=== PATIENT | male | born 1940 | race Caucasian/White ===

== ENCOUNTER 2016-05-22 10:14 | Emergency (ER) | payer MEDICARE, BC ==
--- NOTE | 2016-05-22 11:38 | UC ---
Dizzy HPI HPI Summary: PT STARTED FEELING "WOBBLY" LAST NIGHT AROUND 10 PM. HAS BEEN FEELING DIZZY AND UNSTEADY ON HIS FEET SINCE THEN. IS A DIABETIC AND TOOK HIS INSULIN LAST NIGHT AND ORAL MEDS THIS AM BUT WAS NPO FOR AN US TODAY. WHILE HERE AT [facility] FOR HIS US HE CONTINUED TO FEEL UNWELL SO WAS SENT HERE FOR EVAL. POC GLUCOSE DONE IN US SUITE WAS REPORTEDLY 190. PT DID FALL THIS MORNING BUT NO HEAD INJURY OR LOC. FEELS FINE WHEN LAYING SUPINE. ALSO C/O LEFT GROIN PAIN. PT IS CONCERNED HE WILL FALL AGAIN IF HE TRIES TO WALK. - History Of Current Complaint Chief Complaint: UCDizziness Stated Complaint: DIZZY Time Seen by Provider: 05/22/16 10:31 Hx Obtained From: Patient, Family/Executive Sales Manager - Onset/Duration: Sudden Onset, Lasting Hours, Still Present Timing: Intermittent Episode Lasting Severity Initially: Moderate Severity Currently: Moderate Pain Intensity: 6 Pain Scale Used: 0-10 Numeric Character: Dizzy Aggravating Factor(s): Position Change, Supine To Erect Alleviating Factor(s): Rest Associated Signs And Symptoms: Positive: Unsteady Gait. Negative: Nausea, Vomiting, Diaphoresis, Tinnitus, Chest Pain, SOB, Palpitations, Visual Changes - Allergies/Home Medications Allergies/Adverse Reactions: Allergies Allergy/AdvReac Type Severity Reaction Status Date / Time Atorvastatin [From Lipitor] Allergy Muscle Ache Verified 08/08/15 15:20 Hydrocodone [From Vicodin] Allergy Nausea And Verified 08/08/15 15:20 Vomiting Home Medications: Home Medications Cilostazol TAB* [Pletal TAB*] 100 mg PO BID 05/22/16 [History Confirmed 05/22/16 ] Insulin Detemir (NF) [Levemir (NF)] 60 DAILY 05/22/16 [History] PMH/Surg Hx/FS Hx/Imm Hx Endocrine History Of: Reports: Diabetes Denies: Thyroid Disease Cardiovascular History Of: Reports: Cardiac Disorders - stent-1, Hypertension - on medication Denies: Pacemaker/ICD, Congestive Heart Failure Respiratory History Of: Reports: Asthma Denies: COPD GI/ History Of: Denies: Ulcer, Renal Disease - possible kidney stone to the left kidney with no prior HX Psychological History Of: Reports: Anxiety - Surgical History Surgical History: Yes Surgery Procedure, Year, and Place: HEART CATH WITH 1 STENT PLACED AT [facility] IN 2005,left knee; hernias; appy; abdominal aneurysm repair - Family History Known Family History: Positive: Cardiac Disease, Hypertension, Diabetes - Social History Alcohol Use: 15 years ago; no recent use Substance Use Type: None Smoking Status (MU): Former Smoker Type: Cigarettes Amount Used/How Often: 3-4 cigarettes/day Length of Time of Smoking/Using Tobacco: 45 years Have You Smoked in the Last Year: Yes Household Exposure Type: Cigarettes - Immunization History Most Recent Influenza Vaccination: [id number] flu season Most Recent Tetanus Shot: unknown Most Recent Pneumonia Vaccination: date unknown Review of Systems Constitutional: Negative Eyes: Negative ENT: Negative Respiratory: Negative Cardiovascular: Negative Gastrointestinal: Negative Neurological: Weakness, Other - DIZZY All Other Systems Reviewed And Are Negative: Yes Physical Exam Triage Information Reviewed: Yes Appearance: Well-Appearing, No Pain Distress, Well-Nourished Vital Signs: Initial Vital Signs Temp 97.9 F 05/22/16 10:28 Pulse 79 05/22/16 10:28 Resp 18 05/22/16 10:28 BP 145/76 05/22/16 10:28 Pulse Ox 95 05/22/16 10:28 Vital Signs Reviewed: Yes Eyes: Positive: Conjunctiva Clear ENT: Positive: Hearing grossly normal Neck: Positive: Supple, Nontender, No Lymphadenopathy Respiratory Exam: Normal Cardiovascular: Positive: RRR - WITH OCCASIONAL ECTOPIC BEAT, Murmur:Sys:Grade _ ?_/ - 2/6 Abdomen Description: Positive: Soft Musculoskeletal: Positive: No Edema, Other: - 2+ DP PULSES. FEET PALE BUT WARM. NO SWELLING. VERY SENSITIVE TO TOUCH. LEFT GROIN TENDERNESS. NO MASSES OR LAD PALPATED. NO CALF TENDERNESS. Neurological: Positive: Alert Psychological: Positive: Normal Response To Family, Age Appropriate Behavior Skin: Negative: rashes Diagnostics - EKG Cardiac Rate: NL - 80 BPM Cardiac Rhythm: Sinus: Normal Ectopy: None - SINUS PAUSE ST Segment: Normal Dizzy Course/Dx - Differential Dx/Diagnosis Differential Diagnosis/HQI/PQRI: Benign Paroxysmal Positional Vertigo, Dysrhythmia, Hypovolemia, Metabolic Abnormality Provider Diagnoses: DIZZINESS, WEAKNESS - Physician Notifications Discussed Patient Care With: ABIOLA JACKSON Time Discussed With Above Provider: 11:41 Instructed by Provider To: Transfer - TO [facility] [place] ER BY PRIVATE CAR Discharge - Discharge Plan Condition: Stable Disposition: TRANS HIGHER LVL OF CARE FAC Referrals: Burton Irving MD [Primary Care Provider] -
[2016-05-22 11:59] VITALS: BP 188/85
== END 2016-05-22 11:35 | disposition left against medical advice (07) ==
LOC: UCEAST 10:14
DX: R42 Dizziness and giddiness (principal); R53.1 Weakness; R10.32 Left lower quadrant pain; Z87.891 Personal history of nicotine dependence; E11.9 Type 2 diabetes mellitus without complications; I25.10 Atherosclerotic heart disease of native coronary artery without angina pectoris; I10 Essential (primary) hypertension; E78.5 Hyperlipidemia, unspecified; Z88.5 Allergy status to narcotic agent; Z79.4 Long term (current) use of insulin
CPT/HCPCS: 93005; 99212; G0463

== ENCOUNTER 2016-05-22 12:03 | Emergency (ER) | payer MEDICARE, BC ==
--- NOTE | 2016-05-22 13:21 | RAD ---
HISTORY: Dizziness COMPARISONS: July 02, 2015, MRI dated July 03, 2015 TECHNIQUE: Multiple contiguous axial CT scans were obtained of the head without intravenous contrast. FINDINGS: HEMORRHAGE/INFARCT: There is no hemorrhage or acute infarct. MASSES/SHIFT: There is no mass or shift. EXTRA-AXIAL SPACES: There are no extra-axial fluid collections. SULCI AND VENTRICLES: The sulci and ventricles are normal in size and position for the patient's stated age. CEREBRUM: There is hypoattenuation of the periventricular and subcortical white matter. BRAINSTEM: There are no focal parenchymal abnormalities. CEREBELLUM: There are no focal parenchymal abnormalities. VESSELS: There is calcification of the cavernous segments of the internal carotid arteries bilaterally. PARANASAL SINUSES: The paranasal sinuses are clear. ORBITS: The orbits are unremarkable. BONES AND SOFT TISSUE: No bone or soft tissue abnormalities are noted. OTHER: None IMPRESSION: CHRONIC SMALL VESSEL ISCHEMIC CHANGES. NO ACUTE INTRACRANIAL PATHOLOGY.
[2016-05-22 13:32] LABS: Hematocrit 37 % (42-52); Hemoglobin 12.3 g/dl (14.0-18.0); Mean Corpuscular HGB Conc 33 g/dl (31-36); Mean Corpuscular Hemoglobin 26 pg (27-31); Mean Corpuscular Volume 80 fL (80-94); Mean Platelet Volume 7 um3 (7.4-10.4); Red Blood Count 4.69 10^6/ul (4.0-5.4); Red Cell Distribution Width 16 % (10.5-15); White Blood Count 11.7 10^3/ul (3.5-10.8)
[2016-05-22 13:46] LABS: Albumin 3.6 g/dL (3.2-5.2); BUN/Creatinine Ratio 15.9 (8-20); C Reactive Protein 17.44 mg/L (< 5.00); Calcium 8.7 mg/dL (8.6-10.3); EGFR African American 64.6 (>60); EGFR Non-African American 50.2 (>60); Globulin 3.2 g/dL (2-4); Magnesium 1.8 mg/dL (1.9-2.7); Total Bilirubin 0.3 mg/dL (0.2-1.0); Total Protein 6.8 g/dL (6.4-8.9)
[2016-05-22 13:47] LABS: Troponin I 0.02 ng/mL (<0.04)
--- NOTE | 2016-05-22 14:02 | RAD ---
Indication: Dizziness. Coronary artery disease with previous stenting. Asthma. Comparison: July 28, 2015 Technique: Upright AP 1325 hours Report: Clear lungs and pleural spaces. Negative for pneumothorax. Upper normal heart size. Unremarkable central pulmonary vasculature and mediastinal contours. Anterior cervical fusion hardware noted. IMPRESSION: No evidence for acute intrathoracic disease.
[2016-05-22 14:13] VITALS: BP 147/65
[2016-05-22 14:21] LABS: TSH (Thyroid Stimulating Horm) 0.68 mcIU/mL (0.34-5.60)
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
== END 2016-05-22 15:12 | disposition home or self-care (01) ==
LOC: ED 12:03
DX: R53.1 Weakness (principal); Z87.891 Personal history of nicotine dependence; E11.9 Type 2 diabetes mellitus without complications; I25.10 Atherosclerotic heart disease of native coronary artery without angina pectoris; I10 Essential (primary) hypertension; E78.5 Hyperlipidemia, unspecified; Z88.5 Allergy status to narcotic agent; Z79.4 Long term (current) use of insulin; I71.4 Abdominal aortic aneurysm, without rupture; I70.1 Atherosclerosis of renal artery; I73.9 Peripheral vascular disease, unspecified
CPT/HCPCS: 36415; 70450; 71010; 80053; 83605; 83735; 83880; 84443; 84484; 85025; 86140; 93005; 93978; 99212; 99282; G0463

== ENCOUNTER 2017-01-25 11:21 | Inpatient (IN) | payer MEDICARE, OTHER ==
--- NOTE | 2017-01-25 12:58 | RAD ---
INDICATION: Weakness. COMPARISON: Comparison is made with a prior study from May 22, 2016. TECHNIQUE: A portable view of the chest was obtained. FINDINGS: Cardiac and mediastinal contours appear to be within normal limits. The lungs are clear. No pleural effusion is seen. Postsurgical changes are noted in the cervical spine. IMPRESSION: NO EVIDENCE FOR ACUTE DISEASE.
[2017-01-25 13:40] LABS: Hematocrit 42 % (42-52); Mean Corpuscular HGB Conc 34 g/dl (31-36); Mean Corpuscular Hemoglobin 28 pg (27-31); Mean Corpuscular Volume 84 fL (80-94); Mean Platelet Volume 7 um3 (7.4-10.4); Red Blood Count 4.97 10^6/ul (4.0-5.4); Red Cell Distribution Width 15 % (10.5-15); White Blood Count 14.1 10^3/ul (3.5-10.8)
[2017-01-25 13:51] LABS: Urine Bilirubin Negative (Negative); Urine Glucose Negative (Negative); Urine Nitrite Negative (Negative)
[2017-01-25 14:00] LABS: Albumin 4.3 g/dL (3.2-5.2); BUN/Creatinine Ratio 15.4 (8-20); Calcium 8.8 mg/dL (8.6-10.3); EGFR African American 65.5 (>60); EGFR Non-African American 50.9 (>60); Globulin 2.9 g/dL (2-4); Total Bilirubin 0.4 mg/dL (0.2-1.0); Total Protein 7.2 g/dL (6.4-8.9)
[2017-01-25 14:01] LABS: Troponin I 0.01 ng/mL (<0.04)
[2017-01-25 14:14] LABS: TSH (Thyroid Stimulating Horm) 0.6 mcIU/mL (0.34-5.60)
[2017-01-25] MEDS ORDERED: Morphine INJ* 2 MG/ML 1 ML CARPUJECT IV ONE (15:04)
[2017-01-25] MEDS ORDERED: Ondansetron INJ* 2 MG/ML VIAL IV ONE (15:04)
--- NOTE | 2017-01-25 15:32 | RAD ---
INDICATION: Central vertigo, unsteady gait. COMPARISON: Comparison is made with a prior CT of the brain from May 22, 2016. TECHNIQUE: Contiguous axial sections of the brain were obtained from the skull base to the vertex without contrast. FINDINGS: The ventricles, cisterns and sulci are enlarged consistent with diffuse atrophy. There are multiple focal areas of decreased density in the subcortical and periventricular white matter suggestive of moderate chronic small vessel ischemic changes. No other focal abnormality or mass effect is seen. There is no evidence for hemorrhage. No significant focal osseous abnormality is seen. The visualized portion of the paranasal sinuses and mastoid air cells appear clear. IMPRESSION: NO EVIDENCE FOR GROSS ACUTE INFARCT, MASS EFFECT OR HEMORRHAGE.
--- NOTE | 2017-01-25 15:43 | RAD ---
INDICATION: Trauma, neck pain. COMPARISON: Comparison is made with a prior x-ray study of the cervical spine from February 17, 2012. TECHNIQUE: Contiguous axial sections were obtained from the skull base through the T4 vertebra. Images were reconstructed in the sagittal and coronal planes. FINDINGS: The patient is status post anterior spinal fusion with metallic plates and screws from the C3-C6 levels. There appears to be osseous fusion of the C4-C6 vertebral bodies. No prevertebral soft tissue swelling or fracture is seen. At the C2-C3 level there is mild posterior uncinate process spurring and facet osteoarthritis. No significant spinal canal narrowing is present. There is moderate to severe bilateral neural foraminal narrowing right greater than left. At the C3-C4 level there is posterior uncinate process spurring causing moderate spinal canal narrowing. There is moderate bilateral neural foraminal narrowing. At the C4-C5 level there is mild posterior uncinate process spurring. There is mild spinal canal narrowing and moderate bilateral neural foraminal narrowing. At C5-C6 level there is posterior uncinate process spurring causing mild spinal canal narrowing. There is mild neural foraminal narrowing on the right side and moderate neural foraminal narrowing on the left side. At the C6-C7 level there is posterior uncinate process spurring causing moderate spinal canal narrowing. There is moderate bilateral neural foraminal narrowing. IMPRESSION: 1. STATUS POST ANTERIOR SPINAL FUSION OF THE C3-C6 LEVELS, NO EVIDENCE FOR FRACTURE OR SUBLUXATION. 2. MODERATE CERVICAL SPONDYLOSIS.
--- NOTE | 2017-01-25 16:44 | RAD ---
INDICATION: Trauma, left forearm ecchymoses. TECHNIQUE: 2 views of the left forearm were obtained. FINDINGS: There is soft tissue swelling present along the dorsal aspect of the forearm. The bones are in normal alignment. No fracture is seen. IMPRESSION: SOFT TISSUE SWELLING, NO FRACTURE IS SEEN.
--- NOTE | 2017-01-25 16:44 | RAD ---
INDICATION: Low back pain status post fall. COMPARISON: Comparison is made with a prior x-ray study of the lumbar spine from March 12, 2006. Correlation is also made with a prior CT angiogram of the abdomen and pelvis from July 28, 2015. TECHNIQUE: 5 views of the lumbar spine were obtained including lateral, oblique, AP and a coned-down lateral view of the lumbar sacral junction. FINDINGS: The vertebra are in normal alignment. No fracture is seen. There is mild to moderate degenerative disc disease at the L1-L2 and L2-L3 levels. There is an aortobiiliac stent graft present. IMPRESSION: 1. NO EVIDENCE FOR FRACTURE. 2. MILD TO MODERATE DEGENERATIVE DISC DISEASE.
--- NOTE | 2017-01-25 16:45 | RAD ---
INDICATION: Left elbow injury. TECHNIQUE: 4 views of the left elbow were obtained. FINDINGS: There is dorsal medial soft tissue swelling. The bones are in normal alignment. No joint effusion or fracture is seen. Joint spaces appear maintained. IMPRESSION: SOFT TISSUE SWELLING, NO FRACTURE IS SEEN.
[2017-01-25] MEDS ORDERED: Dextrose 50% Syringe 50 ML* 25 GM/50 ML SYRINGE IV PUSH PRN (18:55)
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
[2017-01-25] MEDS: Insulin LISPRO* 1 UNITS UNIT SUBCUT SCH (23:30)
[2017-01-25] MEDS: Heparin VIAL(*) 5000 UNITS/ML VIAL (FIVE THOUSAND) SUBCUT SCH (23:31)
[2017-01-25] MEDS: ROSUVASTATIN 20 MG PO SCH (23:52)
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
[2017-01-26 05:17] LABS: Hematocrit 37 % (42-52); Hemoglobin 12.6 g/dl (14.0-18.0); Mean Corpuscular HGB Conc 34 g/dl (31-36); Mean Corpuscular Hemoglobin 28 pg (27-31); Mean Corpuscular Volume 83 fL (80-94); Mean Platelet Volume 7 um3 (7.4-10.4); Red Blood Count 4.48 10^6/ul (4.0-5.4); Red Cell Distribution Width 15 % (10.5-15); White Blood Count 12.1 10^3/ul (3.5-10.8)
[2017-01-26 05:31] LABS: Calcium 8.5 mg/dL (8.6-10.3); EGFR African American 56.8 (>60); EGFR Non-African American 44.1 (>60)
[2017-01-26] MEDS: Heparin VIAL(*) 5000 UNITS/ML VIAL (FIVE THOUSAND) SUBCUT SCH ×3 (05:55→21:21)
[2017-01-26] MEDS: Venlafaxine EXT RELEASE CAP* 75 MG PO SCH (08:24)
[2017-01-26] MEDS: Metoprolol Succinate XL TAB* 25 MG PO SCH (08:24)
[2017-01-26] MEDS: Valsartan TAB* 160 MG PO SCH (08:24)
[2017-01-26] MEDS: Omeprazole CAP* 20 MG PO SCH (08:24)
[2017-01-26] MEDS: Finasteride TAB* 5 MG PO SCH (08:24)
[2017-01-26] MEDS: Spironolactone TAB* 25 MG PO SCH (08:24)
[2017-01-26] MEDS: amLODIPine TAB* 5 MG PO SCH (08:24)
[2017-01-26] MEDS: Insulin LISPRO* 1 UNITS UNIT SUBCUT SCH ×4 (08:25→21:21)
[2017-01-26] MEDS ORDERED: Influenza VAC *QUAD* 2017-18* 0.5 ML SYRINGE IM ONE (09:00)
[2017-01-26] MEDS ORDERED: Pneumococcal *Vac Polyvalent 0.5 ML VIAL IM ONE (09:00)
[2017-01-26] MEDS ORDERED: Aspirin Low Dose CHEW TAB* 81 MG PO ONE (09:00)
[2017-01-26 11:03] LABS: Folate > 20.00 ng/mL (>3.99)
[2017-01-26 11:04] LABS: Vitamin B12 214 pg/mL (180-914)
--- NOTE | 2017-01-26 12:19 | ECHO ---
Patient: KOSTAS ESCALONA [facility] Rec#: [id number] : 1940 Date: 01/26/2017 Age: 76y Height: 160.02 cm / 63.0 in Weight: 78.93 kg / 174.0 lbs Sex: M BSA: 1.82 Room#: 435 Admit Date#: 01/25/2017 Type: Inpatient Referring: Devyn Davis Reading: Chantal Murray MD Home Care Manager Rn: Fallon Yost,BRADENCS,RDMS CC: Burton Irving MD CC: Abdoul Cid MD Transthoracic Echocardiogram Indication: Edema, falls BP: 125/61 HR: 80 Rhythm: NSR Findings History: DM, AAA repair, PVD, HTN, HLD, CAD, PCI, former smoker Technical Comments: The study quality is fair. Completed 1110 Left Ventricle: The left ventricular chamber size is normal. Mild concentric left ventricular hypertrophy is observed. Basal interventricular septum shows moderate thickening. The estimated ejection fraction is 45-50%. In some of the views, closer to 50% There is an E to A reversal in the mitral valve flow pattern suggestive of diastolic dysfunction. Left Atrium: The left atrial chamber size is normal. Right Ventricle: The right ventricular chamber size and systolic function are within normal limits. The right ventricle wall thickness is mildly increased. Right Atrium: The right atrial cavity size is normal. Aortic Valve: The aortic valve is trileaflet. The aortic valve leaflets are mildly thickened. Systolic excursion of the aortic valve cusps is reduced. There is trace to mild aortic regurgitation. There is mild aortic stenosis. The mean gradient of the aortic valve is 6 mmHg. The aortic valve area, by peak velocities, is calculated at 1.7 cm2. Mitral Valve: There is mitral annular calcification. The mitral valve leaflets are mildly thickened. There is a trace of mitral regurgitation. There is no evidence of mitral stenosis. Tricuspid Valve: The tricuspid valve leaflets are normal. There is no evidence of tricuspid valve regurgitation. Unable to estimate the right ventricular systolic pressure. Pulmonic Valve: There is no evidence of pulmonic valve thickening. There is no evidence of pulmonic regurgitation. Pericardium: There is no significant pericardial effusion. Aorta: The aortic root appears normal. The aortic arch is not well visualized. Pulmonary Artery: The main pulmonary artery is not well visualized. Venous: The inferior vena cava appears normal in size. There is a greater than 50% respiratory change in the inferior vena cava dimension. Summary: There are changes noted when compared to the previous study done on 07/03/2015, LV EF is now 45-50% (closer to 50%) instead of 55-60% then. Valvular disease is stable. Conclusions The estimated ejection fraction is 45-50%. In some of the views, closer to 50% There is an E to A reversal in the mitral valve flow pattern suggestive of diastolic dysfunction. There is trace to mild aortic regurgitation. There is mild aortic stenosis. There is a trace of mitral regurgitation. There are changes noted when compared to the previous study done on 07/03/2015, LV EF is now 45-50% (closer to 50%) instead of 55-60% then. Valvular disease is stable. Measurements Name Value Normal Range RVIDd (AP) 2D 3.1 cm (0.9 - 2.6) RVDdMajor (2D) 2.7 cm (2.2 - 4.4) RAd ISD 4CH 4.4 cm (3.4 - 4.9) RA (A4C)W 4.2 cm (2.9 - 4.6) IVSd (2D) 1.7 cm (0.6 - 1) LVPWd (2D) 1.3 cm (0.6 - 1) LVIDd (2D) 3.6 cm (3.6 - 5.4) LVIDs (2D) 2.8 cm - LV FS (2D) 22 % (25 - 45) Aortic Annulus 2.1 cm (1.4 - 2.6) Ao root diameter (2D) 3.3 cm (2.1 - 3.5) Ascending Ao 3.4 cm (2.1 - 3.4) LA dimension (AP) 2D 4 cm (2.3 - 3.8) LAd ISD 4CH 4.4 cm (2.9 - 5.3) LA ISD 4CH W 4.2 cm (2.5 - 4.5) Name Value Normal Range LA ESV SP 4CH (A/L) 65.73 ml - LA ESV SP 2CH (A/L) 38.94 ml - LA ESV BP (A/L) 52.04 ml - LA ESV BP (A/L) index 29 ml/m2 - LA ESV SP 4CH (MOD) 60.27 ml - LA ESV SP 2CH (MOD) 37.33 ml - Name Value Normal Range MV E-wave Vmax 0.5 m/sec - MV deceleration time 196 msec - MV A-wave Vmax 0.8 m/sec - MV E:A ratio 0.6 ratio - P. vein S-wave Vmax 0.6 m/sec - P. vein D-wave Vmax 0.3 m/sec - P. vein S:D Vmax ratio 1.7 ratio - P. vein A-wave duration 97 msec - LV septal e' Vmax 0.04 m/sec - LV lateral e' Vmax 0.06 m/sec - LV E:e' septal ratio 12.5 ratio - LV E:e' lateral ratio 8.3 ratio - Name Value Normal Range AV Vmax 1.8 m/sec - AV VTI 30.7 cm - AV peak gradient 13 mmHg - AV mean gradient 6 mmHg - LVOT diameter 2 cm - LVOT Vmax 1 m/sec - LVOT VTI 18 cm - LVOT peak gradient 4 mmHg - LVOT mean gradient 1.8 mmHg - DOI (VTI) 0.6 ratio - TERESA (continuity Vmax) 1.7 cm2 - TERESA (continuity VTI) 1.8 cm2 - AR PHT 546.51 msec - AR peak gradient 56.81 mmHg - Name Value Normal Range RAP 8 mmHg - IVC diameter 1.9 cm - Name Value Normal Range PV Vmax 1 m/sec - PV peak gradient 4 mmHg -
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
[2017-01-26 14:13] LABS: Creatine Kinase 117 U/L (10-223)
--- NOTE | 2017-01-26 16:07 | PN ---
Subjective Date of Service: 01/26/17 Interval History: Worked with PT. Got SOB near end. Some dizziness and room spinning on occasion with position changes. ECHO done. Objective Active Medications: Amlodipine Besylate (Norvasc Tab*) 10 mg PO DAILY [facility] Last Admin: 01/26/17 08:24 Dose: 10 mg Dextrose (D50w Syringe 50 Ml*) 12.5 gm IV PUSH .FOR FS < 60 - SS PRN PRN Reason: FS < 60 Finasteride (Proscar Tab*) 5 mg PO DAILY [facility] Last Admin: 01/26/17 08:24 Dose: 5 mg Heparin Sodium (Porcine) (Heparin Vial(*)) 5,000 units SUBCUT Q8HR [facility] Last Admin: 01/26/17 14:45 Dose: 5,000 units Insulin Human Lispro (Humalog*) 0 units SUBCUT ACHS [facility] PRN Reason: Protocol Last Admin: 01/26/17 12:43 Dose: 2 units Metoprolol Succinate (Toprol Xl Tab*) 25 mg PO DAILY [facility] Last Admin: 01/26/17 08:24 Dose: 25 mg Omeprazole (Prilosec Cap*) 20 mg PO DAILY [facility] Last Admin: 01/26/17 08:24 Dose: 20 mg Rosuvastatin Calcium (Crestor (Nf)) 20 mg PO BEDTIME [facility] Last Admin: 01/25/17 23:52 Dose: 20 mg Spironolactone (Aldactone Tab*) 25 mg PO DAILY [facility] Last Admin: 01/26/17 08:24 Dose: 25 mg Valsartan (Diovan Tab*) 160 mg PO DAILY [facility] Last Admin: 01/26/17 08:24 Dose: 160 mg Venlafaxine HCl (Effexor Xr Cap*) 150 mg PO DAILY [facility] Last Admin: 01/26/17 08:24 Dose: 150 mg Vital Signs 01/25/17 01/25/17 01/25/17 19:00 20:00 21:15 Temperature 97.5 F Pulse Rate 76 Respiratory 15 19 18 Rate Blood Pressure 143/68 (mmHg) O2 Sat by Pulse 95 Oximetry 01/26/17 01/26/17 01/26/17 00:31 00:33 00:35 Temperature 98.3 F Pulse Rate 71 74 75 Respiratory 16 Rate Blood Pressure 126/64 148/73 136/68 (mmHg) O2 Sat by Pulse 95 Oximetry 01/26/17 01/26/17 01/26/17 03:56 07:20 07:38 Temperature 98.0 F 98.1 F Pulse Rate 75 75 Respiratory 16 18 16 Rate Blood Pressure 125/61 142/66 (mmHg) O2 Sat by Pulse 98 95 Oximetry 01/26/17 01/26/17 11:54 15:11 Temperature 98.1 F 98.3 F Pulse Rate 74 74 Respiratory 20 20 Rate Blood Pressure 127/71 139/65 (mmHg) O2 Sat by Pulse 94 99 Oximetry Appearance: NAD, lying in bed. Ears/Nose/Mouth/Throat: NL Teeth, Lips, Gums, Mucous Membranes Moist Neck: NL Appearance and Movements; NL JVP, Trachea Midline Respiratory: Symmetrical Chest Expansion and Respiratory Effort, Clear to Auscultation Cardiovascular: NL Sounds; No Murmurs; No JVD, No Edema Abdominal: NL Sounds; No Tenderness; No Distention Extremities: No Edema Skin: No Rash or Ulcers, No Nodules or Sclerosis Neurological: Alert and Oriented x 3, - - CNII-XII intact. hyper sensitive feet b/l. Negative Ezequiel-Hallpike w/o nystagmus but did get dizzy. Nutrition: Taking PO's Result Diagrams: 01/26/17 04:55 01/26/17 04:55 Additional Lab and Data: Laboratory Results - last 24 hr 01/25/17 01/25/17 01/26/17 13:05 22:44 04:55 WBC 12.1 H RBC 4.48 Hgb 12.6 L Hct 37 L MCV 83 MCH 28 MCHC 34 RDW 15 Plt Count 453 H D MPV 7 L Neut % (Auto) 60.8 Lymph % (Auto) 27.8 [place] % (Auto) 9.6 H Eos % (Auto) 1.2 Baso % (Auto) 0.6 Absolute Neuts (auto) 7.3 Absolute Lymphs (auto) 3.4 Absolute Monos (auto) 1.2 H Absolute Eos (auto) 0.2 Absolute Basos (auto) 0.1 Absolute Nucleated RBC 0.01 Nucleated RBC % 0.1 Sodium Potassium Chloride Carbon Dioxide Anion Gap BUN Creatinine Est GFR ( Amer) Est GFR (Non-Af Amer) BUN/Creatinine Ratio Glucose POC Glucose (mg/dL) 198 H Hemoglobin A1c Calcium Total Creatine Kinase Myoglobin B-Natriuretic Peptide 34 Vitamin B12 Folate 01/26/17 01/26/17 01/26/17 04:55 04:55 07:30 WBC RBC Hgb Hct MCV MCH MCHC RDW Plt Count MPV Neut % (Auto) Lymph % (Auto) [place] % (Auto) Eos % (Auto) Baso % (Auto) Absolute Neuts (auto) Absolute Lymphs (auto) Absolute Monos (auto) Absolute Eos (auto) Absolute Basos (auto) Absolute Nucleated RBC Nucleated RBC % Sodium 133 Potassium 4.0 Chloride 101 Carbon Dioxide 25 Anion Gap 7 BUN 20 Creatinine 1.54 H Est GFR ( Amer) 56.8 Est GFR (Non-Af Amer) 44.1 BUN/Creatinine Ratio 13.0 Glucose 143 H POC Glucose (mg/dL) 161 H Hemoglobin A1c 7.8 H Calcium 8.5 L Total Creatine Kinase Myoglobin B-Natriuretic Peptide Vitamin B12 Folate 01/26/17 01/26/17 09:55 11:37 WBC RBC Hgb Hct MCV MCH MCHC RDW Plt Count MPV Neut % (Auto) Lymph % (Auto) [place] % (Auto) Eos % (Auto) Baso % (Auto) Absolute Neuts (auto) Absolute Lymphs (auto) Absolute Monos (auto) Absolute Eos (auto) Absolute Basos (auto) Absolute Nucleated RBC Nucleated RBC % Sodium Potassium Chloride Carbon Dioxide Anion Gap BUN Creatinine Est GFR ( Amer) Est GFR (Non-Af Amer) BUN/Creatinine Ratio Glucose POC Glucose (mg/dL) 137 H Hemoglobin A1c Calcium Total Creatine Kinase 117 Myoglobin 92.9 B-Natriuretic Peptide Vitamin B12 214 Folate > 20.00 Assess/Plan/Problems-Billing Assessment: 76 yo male PMH IDDM, CAD s/p stent, PVD s/p bypass graft frostbite feet b/l, HTN , HLD, BPH p/w two falls and unsteady gait. Rule out CVA. Awaiting MRI Brain and carotid US. - Patient Problems (1) Gait instability Current Visit: Yes Status: Acute Code(s): R26.81 - UNSTEADINESS ON FEET SNOMED Code(s): 84146691 Comment: 2 recent falls in dark. has had in past. Likely 2/2 neuropathy ( frostbite + IDDM) and vertigo. ?hypoglycemia (has not required near his home 80U levemir at night. Ezequiel Hallpike negative. Did do Epely manuevers about 16 years ago with improvment. f/u MRI brain and carotid US b12 w/u Needing walker continue PT. (2) Hyperesthesia Current Visit: Yes Status: Acute Code(s): R20.3 - HYPERESTHESIA SNOMED Code(s): 32697876 Comment: frostbite as teenager, now IDDM. B12 marginally low, folate wnl. Added on methylmalonic acid and homocysteine Likely contributing to falls Appreciate Neuro recs (3) Diabetes Current Visit: No Status: Acute Priority: Medium Code(s): E11.9 - TYPE 2 DIABETES MELLITUS WITHOUT COMPLICATIONS SNOMED Code(s): 43820506 Comment: SSI . HbA1c 7.8%. holding home levemir 80U and tradjenta. (4) Hyperlipemia Current Visit: No Status: Acute Priority: Medium Code(s): E78.5 - HYPERLIPIDEMIA, UNSPECIFIED SNOMED Code(s): 82830845 Comment: Continue crestor 20mg daily (5) Hypertension Current Visit: No Status: Acute Priority: Medium Code(s): I10 - ESSENTIAL (PRIMARY) HYPERTENSION SNOMED Code(s): 11936814 Comment: Continue home Valsartan 160mg daily, metoprolol succinate 25mg daily , spironolactone 25mg daily. (6) Diastolic dysfunction without heart failure Current Visit: Yes Status: Acute Code(s): I51.9 - HEART DISEASE, UNSPECIFIED SNOMED Code(s): 4278450 Comment: not currently volume overloaded. f/u with Dr. Cid who recently gave new diuretic 2 days prior to admission. (7) BPH (benign prostatic hyperplasia) Current Visit: Yes Status: Acute Code(s): N40.0 - BENIGN PROSTATIC HYPERPLASIA WITHOUT LOWER URINRY TRACT SYMP SNOMED Code(s): 850629768 Comment: continue proscar Status and Disposition: medicine inpatient until Brain MRI and carotid US completed. Attending: Devyn Davis
--- NOTE | 2017-01-26 17:05 | RAD ---
INDICATION: Possible stroke. COMPARISON: Comparison is made with a prior carotid duplex ultrasound from July 03, 2015. TECHNIQUE: Multiple grayscale, color and Doppler tracings of the common, internal and external carotid and vertebral arteries were obtained. Stenosis estimations reflect velocity criteria that it been correlated to angiographic stenosis calculations based on the distal internal carotid diameter. RIGHT CAROTID: There is mild plaque within the right carotid bulb. The peak systolic velocity in the proximal right internal carotid artery is 83 cm/s and the maximum end-diastolic velocity is 16 cm/s. The peak systolic velocity in the distal right common carotid artery is 81 cm/s and the maximum end-diastolic velocity is 18 cm/s. The internal to common carotid artery ratio is 1.0. This would be consistent with a less than 50% stenosis. LEFT CAROTID: There is mild plaque within the left carotid bulb and proximal internal carotid artery. The peak systolic velocity in the proximal left internal carotid artery is 99 cm/s and the maximum end-diastolic velocity is 17 cm/s. The peak systolic velocity in the distal left common carotid artery is 84 cm/s and the maximum end-diastolic velocity is 18 cm/s. The internal to common carotid artery ratio is 1.2. This would be consistent with a less than 50% stenosis. VERTEBRALS: There is antegrade flow in both vertebral arteries. IMPRESSION: THERE IS MILD PLAQUE PRESENT WITHIN THE CAROTID BULBS AND PROXIMAL INTERNAL CAROTID ARTERIES. NO HEMODYNAMICALLY SIGNIFICANT STENOSIS IS PRESENT. THERE IS MILD PROGRESSION ON THE LEFT SIDE WHEN COMPARED WITH THE PRIOR STUDY. CPT II Codes: 3100F
[2017-01-26] MEDS: ROSUVASTATIN 20 MG PO SCH (21:21)
[2017-01-27] MEDS: Heparin VIAL(*) 5000 UNITS/ML VIAL (FIVE THOUSAND) SUBCUT SCH (05:39)
[2017-01-27 06:01] LABS: Hematocrit 39 % (42-52); Hemoglobin 13.2 g/dl (14.0-18.0); Mean Corpuscular HGB Conc 34 g/dl (31-36); Mean Corpuscular Hemoglobin 28 pg (27-31); Mean Corpuscular Volume 84 fL (80-94); Mean Platelet Volume 7 um3 (7.4-10.4); Red Blood Count 4.69 10^6/ul (4.0-5.4); Red Cell Distribution Width 15 % (10.5-15); White Blood Count 13.2 10^3/ul (3.5-10.8)
[2017-01-27 06:24] LABS: BUN/Creatinine Ratio 14.5 (8-20); Calcium 8.7 mg/dL (8.6-10.3); EGFR African American 54.7 (>60); EGFR Non-African American 42.5 (>60); Potassium 4.4 mmol/L (3.5-5.0)
[2017-01-27] MEDS: Valsartan TAB* 160 MG PO SCH (08:17)
[2017-01-27] MEDS: Insulin LISPRO* 1 UNITS UNIT SUBCUT SCH ×2 (08:17→12:02)
[2017-01-27] MEDS: Spironolactone TAB* 25 MG PO SCH (08:18)
[2017-01-27] MEDS: Omeprazole CAP* 20 MG PO SCH (08:18)
[2017-01-27] MEDS: amLODIPine TAB* 5 MG PO SCH (08:18)
[2017-01-27] MEDS: Finasteride TAB* 5 MG PO SCH (08:18)
[2017-01-27] MEDS: Metoprolol Succinate XL TAB* 25 MG PO SCH (08:18)
[2017-01-27] MEDS: Venlafaxine EXT RELEASE CAP* 75 MG PO SCH (08:18)
[2017-01-27] MEDS ORDERED: Cyanocobalamin INJ * 1,000 MCG/ML VIAL 1 ML VIAL IM ONE (10:04)
--- NOTE | 2017-01-27 10:59 | RAD ---
INDICATION: Unsteady gait. Vertigo COMPARISON: Carotid sonogram January 26, 2017; CT brain January 25, 2017; MRI brain July 03, 2015 TECHNIQUE: sagittal T1 FLAIR, axial diffusion, axial T1 FLAIR, axial T2, axial T2 FLAIR, and SWI images were acquired. FINDINGS: Craniocervical junction: The craniocervical junction appears normal. Ventricles/sulci: There is cortical atrophy with compensatory dilatation of the CSF spaces. Brain parenchyma: There are mild to moderate T2-weighted hyperintensities in the periventricular and subcortical white matter consistent with chronic microvascular ischemia. The appearance is unchanged. Intracranial hemorrhage: There is no intracranial hemorrhage. Extra-axial spaces: There are no extra-axial fluid collections or masses. Orbits: There are no MR abnormalities of the orbital structures. Paranasal sinuses/mastoid: The paranasal sinuses are clear. The mastoid air cells are well aerated.. Vascular: No abnormalities are seen. 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 [id number] MICROVASCULAR ISCHEMIC CHANGE. NO ACUTE FINDINGS.
[2017-01-27 11:40] VITALS: BP 127/62
--- NOTE | 2017-01-27 14:04 | PN ---
PROGRESS NOTE: DATE OF PROGRESS NOTE: 01/27/17 LOCATION: Currently in 435, bed 1. Overnight, he has done well. He has had no new issues. He had an episode yesterday of dizziness and room spinning but overall this has stabilized. He was walking with physical therapy in the hallway. I did see him, at one point, he was walking well with a walker, although he did get short of breath at one point and seems to have some limited tolerance due to shortness of breath; otherwise he is doing well. He denies any headaches. He denies any current dizziness or vision changes. No focal weakness, numbness, tingling, and is curious about when he might be able to go home. Current medications include: Norvasc 10 mg p.o. daily, Proscar 5 mg daily, heparin DVT prophylaxis, insulin, Toprol-XL 25 mg every day, Prilosec 20 mg daily, Crestor 20 mg at bedtime, Aldactone 25 mg daily, valsartan 160 mg daily, venlafaxine 150 mg p.o. daily. Vital Signs: Temperature of 98.1, pulse of 74, respiratory rate of 20, pulse ox 96%, blood pressure 141/68. General: He has been in the 120s to 140 over 70s to 80s. In general, he is a well-nourished, well-developed gentleman, sitting in his chair. He is pleasant, well dressed, well groomed. HEENT: He is normocephalic, atraumatic. Sclerae anicteric. Mucous membranes are moist. Oropharynx is clear. Neck is supple. Chest: Clear to auscultation bilaterally. Cardiovascular: Regular rate and rhythm. Abdomen is nontender, obese. Extremities: No clubbing, cyanosis. Neurologic Exam: He is awake, alert, oriented x3. Speech is fluent. There is no dysarthria. Repetition is intact. Recall of recent and remote events is intact. Vocabulary is intact. His mood is euthymic. Affect mood congruent. Cranial nerves II through XII. Pupils are equal, round, and reactive to light. Extraocular muscles are intact. Visual villarreal are full. Face is symmetric. Sensation is intact. Hearing is diminished bilaterally, symmetric. His palate raises symmetrically. Tongue is midline. Motor exam: Spontaneously moving all extremities antigravity. No drift, 5/5 throughout. DTRs are 1+ and symmetric in the upper and lower extremities bilaterally. [id number] and rapid alternating movements are intact without significant tremor or dysdiadochokinesia. Heel-to- taveras is intact without dysmetria. Sensation: He has markedly increased sensation in the feet bilaterally with paresthesias and dysesthesias. He has some loss of light touch and pinprick in the feet bilaterally as well with vibration and proprioception. Lab work includes a basic metabolic profile this morning with creatinine of 1.59 , glucose of 178, blood glucoses have ranged from 137, to 192, to 212, to 178, to 180. Magnesium of 8.7. Vitamin B12 of 214. Folate of greater than 20. CK 117, myoglobin of 92.9. Reports he had a carotid ultrasound, which showed no significant stenosis. He did have some plaque present in the carotid bulbs and proximal internal carotid arteries, mild progression of the left side when compared to the prior antegrade flow in the vertebral arteries. Transthoracic echocardiogram showed an ejection fraction of 45% to 50%. E to A reversal in the mitral valve flow pattern suggestive of diastolic dysfunction. Trace to mild valvular regurg and stenosis. No changes when compared to prior on except for slightly decreased ejection fraction. Mr. Vasquez is a 76-year-old gentleman who presented to the hospital with some episodes of vertigo, also gait abnormalities, has been more off balance in the last week with several falls. He notes a generalized weakness but no focal weakness and has had some medication changes by his scrap sorter recently. Overnight, he has done well. He has had one episode of vertiginous symptoms but otherwise no dizziness. He did ambulate with assistance and a walker yesterday and Physical Therapy is working with him. At this point, I suspect that his symptoms are likely related to some underlying vertigo, likely central in origin as well as significant neuropathy of the feet. Unfortunately, his feet are difficult to exam and he cannot be touched in his feet without significant pain. We can consider an EMG/nerve conduction study as an outpatient, but I fear that he will not be able to tolerate the examination. I will continue his physical therapy. MRI of the brain is pending. His B12 was noted to be low and further workup is in progress, consider supplementation with cyanocobalamin 1000 mcg IM. Patient is anxious to go home. I told him that if his MRI of the brain is negative for any acute events and he is walking better today, then I am fine if he is discharged home with followup in 4 to 6 weeks. I will discharge him home on an aspirin 81 mg as well; I will start that today. [id number]/[facility] #: [id number] MELBA
--- NOTE | 2017-01-28 04:33 | DS ---
DISCHARGE SUMMARY: DATE OF ADMISSION: 01/25/17 DATE OF DISCHARGE: 01/27/17 ADMITTING AND ATTENDING PROVIDER: Devyn Davis MD. CHIEF COMPLAINT: Two falls within the last 5 days and continued gait instability. PAST MEDICAL HISTORY: CAD, status post iliac stent, hyperlipidemia, insulin- dependent diabetes mellitus, frostbite in bilateral feet as teenager, hypertension, BPH, history of one episode of vertigo, hyperesthesias in bilateral feet secondary to the frostbite. PRINCIPAL DIAGNOSES: Falls and gait instability likely secondary to peripheral neuropathy again in the setting on insulin dependent diabetes, frostbite and potentially exacerbated by new onset lower extremity edema. HISTORY OF PRESENT ILLNESS AND HOSPITAL COURSE: The patient is a 76-year-old male with past medical history as above, who presents with 2 falls, first occurring 4 days prior to admission on 01/21/17 at night after getting up from bed to use the restroom, he lost balance, hit his right shoulder and back of his head into the closet breaking part of the closet. Next day similar occurrence happened when he was trying to put on his underwear, fell, hit his left arm and broke a piece of furniture. The patient followed with manager cleaning , Dr. Ortiz 2 days prior to admission, thought he looked dehydrated and had potential concern for low electrolytes. He saw his diagnostic assistant, Dr. Cid day prior to admission and a new diuretic was prescribed given his new bilateral feet swelling that had started 4 to 5 days prior to admission as well. The patient had a walker in his possession acquired at a garage sale and started to use that for the last few days. For continued feelings of unsteadiness on his feet, he presented to the [facility] Emergency Room. A CT of the head was done, which showed moderate chronic small vessel ischemic changes. He was Romberg positive in the ED and there was concern for potential posterior circulation stroke. Given the new gait instability, he was admitted for further workup. Please see H and P for full details. Dr. Estevez, a Neurology was consulted, and MRI of the brain was eventually obtained on hospital day #3, which showed no acute stroke, some evidence of small vessel ischemic changes. The patient had a B12 level, which was borderline low at 214. Folate was within normal limits. Methylmalonic acid and homocystine were drawn, but pending at time of discharge. He was started on 1000 mcg vitamin B12 shot here in the hospital and will need to get shots weekly for the first week and then monthly until further laboratory evaluation. The patient worked with physical therapy, improved daily, and felt more to stay on his feet. Dr. Estevez and hospitalist team thought that his falls were mostly related to continued neuropathy secondary to his insulin-dependent diabetes, his frostbite as a teenager, which makes him hyperesthetic and so sensitive that examination is very difficult given will not tolerate and then the additional onset of his new lower extremity swelling. For that an echocardiogram was obtained, and showed slight reductions in previous ejection fraction now 45% to 50% compared to 55% to 60% on June 2015. There was E to A reversal in the mitral valve flow pattern suggestive of diastolic dysfunction, trace mitral regurg, mild aortic stenosis, [id number] aortic regurgitation. Additional studies in the emergency room included a lumbar spine x- ray, forearm x-ray, elbow x-ray, and cervical spine CT, which demonstrates some soft tissue swelling in the left forearm and elbow, but no fractures and additional evidence of his previous spinal fusion surgery. Dr. Estevez also recommended carotid Dopplers, which showed less than 50% stenosis bilaterally and with mild plaque. The patient was recommended to continue his 81 mg aspirin daily. No other medication changes were made except for the addition of the B12 shots. Of note, he is on 80 units of Levemir nightly, and his initial blood sugars in the emergency room were 101 though he did attest to not eating anything that day. He was not continued on that given only a sliding scale insulin and blood sugars ranged between, mostly 130 to 180, and he required approximately 8 to 12 units of lispro sliding scale a day. Some concern that his 80 units of Levemir at night may be too much for him as hypoglycemic event may have contributed to some of these falls, as they both happened at night after his shot. He was requested to record his blood sugars more frequently for the next few days before he can see his primary care physician. These would include before every meal first thing in the morning and before he goes to bed. The patient was measured for orthostatic hypotension, which was negative in the emergency room. DISCHARGE MEDICATIONS: Include: 1. Vitamin B12 shots every week for 3 weeks followed by every month for 3 months. 2. Proscar 5 mg p.o. daily. 3. Metoprolol succinate 25 mg daily. 4. Omeprazole 20 mg p.o. daily. 5. Rosuvastatin 20 mg at bedtime. 6. Spironolactone 25 mg p.o. daily. 7. Valsartan 160 mg p.o. daily. 8. Venlafaxine 150 mg p.o. daily. 9. Amlodipine 10 mg p.o. daily. 10. Tradjenta (linagliptin) 5 mg p.o. daily. 11. Levemir 80 units daily (to be adjusted by patient for low blood sugars as he has been doing in the past). 12. Aspirin 81 mg daily. DIET: Carbohydrate consistent heart healthy diet. ACTIVITY LEVEL: No restrictions, but currently using a walker for gait assistance. FOLLOWUP: Please follow up with Dr. Irving within 3 to [address] Cid within 2 to 4 weeks. TIME SPENT ON DISCHARGE: 35 minutes. [id number]/[facility] #: [id number] MELBA
[2017-02-03] MEDS ORDERED: Cyanocobalamin INJ * 1,000 MCG/ML VIAL 1 ML VIAL IM SCH (11:00)
== END 2017-01-27 12:30 | disposition home or self-care (01) | DRG 74 ==
LOC: ED 11:21 → MEDTELE 18:09
PROVIDERS: ADMIT Internal Medicine; ATTEND Internal Medicine
DX: E11.42 Type 2 diabetes mellitus with diabetic polyneuropathy (principal); E11.65 Type 2 diabetes mellitus with hyperglycemia; I11.9 Hypertensive heart disease without heart failure; R26.81 Unsteadiness on feet; R29.6 Repeated falls; R60.0 Localized edema; E78.5 Hyperlipidemia, unspecified; E53.8 Deficiency of other specified B group vitamins; N40.0 Benign prostatic hyperplasia without lower urinary tract symptoms; R20.3 Hyperesthesia; Z87.891 Personal history of nicotine dependence; Z79.4 Long term (current) use of insulin; Z95.5 Presence of coronary angioplasty implant and graft; Z79.82 Long term (current) use of aspirin; Z79.899 Other long term (current) drug therapy; Z88.5 Allergy status to narcotic agent; Z88.8 Allergy status to other drugs, medicaments and biological substances; Z82.49 Family history of ischemic heart disease and other diseases of the circulatory system
CPT/HCPCS: 36415; 70450; 70551; 71010; 72110; 72125; 80048; 80053; 81003; 82550; 82607; 82746; 83036; 83090; 83605; 83735; 83874; 83880; 83921; 84443; 84484; 85025; 90686; 90732; 93005; 93306; 93880; A9270-GY; J1644; J2270; J2405; J3420